=== PATIENT | female | born 1940 | race Caucasian/White ===

== ENCOUNTER 2022-02-22 15:03 | Oncology outpatient (recurring) (ONCR) | payer MEDICARE, SELFPAY | END 2022-03-23 23:59 | disposition home or self-care (01) | PROVIDERS: PCP Internal Medicine; Visit Provider Internal Medicine Medical Oncology | DX: Z08 Encounter for follow-up examination after completed treatment for malignant neoplasm (principal); Z85.3 Personal history of malignant neoplasm of breast; Z90.11 Acquired absence of right breast and nipple | CPT/HCPCS: 99203 ==

== ENCOUNTER 2022-03-09 14:02 | Outpatient (CLI) | payer MEDICARE, SELFPAY ==
--- NOTE | 2022-03-09 14:08 | XR_ITS ---
WS: [id number] DEXA (DUAL ENERGY X-RAY ABSORPTIOMETRY) Bone mineral density was performed using a [employer] machine. HISTORY: Checking bone density COMPARISON: None available. Lumbar spine BMD (L1-L4): 1.911 g/cm2 T score: 6.1 Z score: 7.8 Total hip BMD: Left: 1.025 g/cm2. T score: 0.1 Z score: 2.3 Right: 1.041 g/cm2. T score: 0.3 Z score: 2.4 10 year probability of a major osteoporotic fracture is 11.4%. Lumbar scoliosis and asymmetric disc space narrowing. XR/XR DEXA axial skeleton* [id number] IMPRESSION: NORMAL BONE MINERAL DENSITY based upon the WHO classification for females.
--- NOTE | 2022-03-09 14:12 | MM_ITS ---
WS: [id number] LEFT 3D TOMOSYNTHESIS DIGITAL MAMMOGRAPHY WITH CAD CLINICAL INFORMATION: H/O breast cancer HISTORY: RIGHT mastectomy COMPARISON: None available TECHNIQUE: 3 views of the left breast were obtained. FINDINGS: Scattered fibroglandular densities of the left breast. Vascular calcification. Incidental punctate an d lucent centered calcifications. No suspicious parenchymal abnormalities. Four-quadrant ultrasound d escribed below. ULTRASOUND BREAST LEFT TECHNIQUE: Whole LEFT breast ultrasound CLINICAL INFORMATION: H/O breast cancer FINDINGS: Ultrasound entire LEFT breast. Hypoechoic ovoid area at the 12:00 position 1 cm from the nipple measu ring 3.9 x 2.4 x 4.9 mm best seen anti-radial. This may represent dense fibrous ridging but nonspecif ic and recommend 6 month follow-up to confirm stability. Additional multicystic lesion at the 6:00 position near the areola measuring 6.9 x 3.1 x 7.6 mm appea rs to represent a cluster of incidental cysts. No other suspicious abnormalities. MM/[place] [id number] IMPRESSION: BI-RADS: 3-Probably Benign FOLLOW UP: 6 Month Follow-up Recommend 6 month follow-up LEFT breast ultrasound with attention to the 12:00 ovoid lesion 1 cm from the nipple and also the cluster of microcysts at the 6:0 0 position near the areola.
--- NOTE | 2022-03-09 15:20 | US_ITS ---
WS: [id number] LEFT 3D TOMOSYNTHESIS DIGITAL MAMMOGRAPHY WITH CAD CLINICAL INFORMATION: H/O breast cancer HISTORY: RIGHT mastectomy COMPARISON: None available TECHNIQUE: 3 views of the left breast were obtained. FINDINGS: Scattered fibroglandular densities of the left breast. Vascular calcification. Incidental punctate an d lucent centered calcifications. No suspicious parenchymal abnormalities. Four-quadrant ultrasound d escribed below. ULTRASOUND BREAST LEFT TECHNIQUE: Whole LEFT breast ultrasound CLINICAL INFORMATION: H/O breast cancer FINDINGS: Ultrasound entire LEFT breast. Hypoechoic ovoid area at the 12:00 position 1 cm from the nipple measu ring 3.9 x 2.4 x 4.9 mm best seen anti-radial. This may represent dense fibrous ridging but nonspecif ic and recommend 6 month follow-up to confirm stability. Additional multicystic lesion at the 6:00 position near the areola measuring 6.9 x 3.1 x 7.6 mm appea rs to represent a cluster of incidental cysts. No other suspicious abnormalities. US/US breast complete [id number] IMPRESSION: BI-RADS: 3-Probably Benign FOLLOW UP: 6 Month Follow-up Recommend 6 month follow-up LEFT breast ultrasound with attention to the 12:00 ovoid lesion 1 cm from the nipple and also the cluster of microcysts at the 6:0 0 position near the areola.
== END 2022-03-09 14:03 | disposition home or self-care (01) ==
LOC: RAD 14:03
PROVIDERS: PCP Internal Medicine Medical Oncology; Visit Provider Internal Medicine
DX: Z85.3 Personal history of malignant neoplasm of breast (principal); Z78.0 Asymptomatic menopausal state
CPT/HCPCS: 76641; 77061; 77080; G0279

== ENCOUNTER 2022-09-13 08:20 | Outpatient (CLI) | payer MEDICARE, SELFPAY ==
--- NOTE | 2022-09-13 08:37 | US_ITS ---
WS: [id number] ULTRASOUND BREAST LEFT TECHNIQUE: Ultrasound left breast focused area of concern. CLINICAL INFORMATION: ABNORMAL MAMMO COMPARISON: March 09, 2022 FINDINGS: Ultrasound 12:00 and 600 LEFT breast. Cluster of microcysts at the 6:00 position is unchanged in appe arance. This has a benign appearance. Previously described dense fibrous lesion at 12:00 position not visualized today. This likely represe nted incidental fibrous ridging. Recommend return to annual diagnostic mammography US/US breast LT limited* [id number] IMPRESSION: BI-RADS 2 benign Return to annual diagnostic mammography
== END 2022-09-13 08:21 | disposition home or self-care (01) ==
PROVIDERS: PCP Family Medicine; Visit Provider Internal Medicine Medical Oncology
DX: R92.8 Other abnormal and inconclusive findings on diagnostic imaging of breast (principal); Z85.3 Personal history of malignant neoplasm of breast
CPT/HCPCS: 76642

== ENCOUNTER → 2023-11-09 10:45 | Outpatient (BNVA) | payer MEDICARE, SELFPAY | PROVIDERS: PCP Family Medicine; Referring Provider Family Medicine; Visit Provider Student in an Organized Health Care Education/Training Program | DX: M25.842 Other specified joint disorders, left hand (principal) | CPT/HCPCS: 73110 ==

== ENCOUNTER 2024-06-28 14:40 | Emergency (ER) | payer MEDICARE, SELFPAY ==
[2024-06-28] VITALS (11 sets, daily range): BP systolic 137–194; BP diastolic 72–110; PULSE 64–86; RESP 16–19; TEMP 36.3; O2SAT 95–100
--- NOTE | 2024-06-28 14:50 | ECG_ITS ---
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 Measurements Intervals [place] Rate: 75 P: 29 [place]: 171 QRS: 48 QRSD: 98 T: 45 QT: 368 QTc: 413 Interpretive Statements SINUS RHYTHM INCOMPLETE RIGHT BUNDLE BRANCH BLOCK [90+ ms QRS DURATION, TERMINAL R IN V1/V2, 40+ ms S IN I/aVL/V4/V5/V6] No previous ECG available for comparison Electronically Signed On 06-29-2024 18:01:27 MERCHANDISE COLLECTOR by Rian Mccollum M.D. [email or web address]
--- NOTE | 2024-06-28 15:43 | XRR_ITS ---
PROCEDURE INFORMATION: Exam: XR Chest Exam date and time: 06/28/2024 4:03 PM Age: 84 years old Clinical indication: Other: Hypertension TECHNIQUE: Imaging protocol: Radiologic exam of the chest. Views: 1 view. COMPARISON: No relevant prior studies available. FINDINGS: Lungs: Monitoring leads and clothing artifacts overlie the chest. Lungs appear to be grossly clear. No consolidation. Pleural spaces: Costophrenic angles are well demarcated. No pleural effusion. No pneumothorax. Heart/Mediastinum: Unremarkable. No cardiomegaly. Bones/joints: Unremarkable. Other: Surgical clip like artifacts are seen in the right axillary region. XR/XR chest 1V portable [id number] IMPRESSION: No acute portable chest findings.
[2024-06-28 16:19] LABS: Basophils % 0.6 %; Eosinophils # 0.1 10^3/uL (0.0-0.8); Eosinophils % 1.6 %; Hematocrit 43.3 % (36-47); Lymphocytes # 1.4 10^3/uL (0.8-4.8); Mean Corpuscular HGB Conc 32.6 g/dL (30-55); Mean Corpuscular Hemoglobin 30.1 pg (27-33); Mean Corpuscular Volume 92.5 fl (85-98); Monocytes # 0.4 10^3/uL (0.2-0.9); Monocytes % 8.6 %; Neutrophils # 2.92 10^3/uL (1.8-7.7); Nucleated Red Blood Cells % 0 %; Platelet Count 226 10^3/cmm (157-399); Red Blood Count 4.68 10^6/uL (3.85-5.65); Red Cell Distribution Width 14.5 % (12.1-15.1); White Blood Count 4.87 10^3/uL (3.29-11.43)
[2024-06-28 16:32] LABS: Bilirubin Urine Negative (Negative); Blood Urine Negative (Negative); Glucose Urine UA Negative (Normal); Ketones Urine Trace (Negative); Leukocyte Esterase Urine 1+ (Negative); Nitrate Urine Negative (Negative); Protein Urine Negative (Negative); Specific Gravity, Urine 1.011 (1.005-1.030); Urine Appearance Clear (CLEAR); Urine Color Yellow (Yellow); Urobilinogen Urine 0.2 mg/dL (Negative); pH Urine 6.5 (5-7)
[2024-06-28 16:37] LABS: Bacteria Urine None Seen /hpf; Hyaline Casts Urine 0-4 /lpf; RBC Urine 0-2 /hpf (0-2); Squamous Epithelial Cell Urine 0-5 /hpf (0-5); WBC Urine 0-5 /hpf (0-5)
[2024-06-28 16:44] LABS: Troponin(5th) Baseline 17 ng/L (0-10)
[2024-06-28 16:54] LABS: Alanine Aminotransferase 19 U/L (0-33); Albumin Level 4.3 g/dL (3.5-5.2); Alkaline Phosphatase 62 U/L (35-105); Anion Gap 15.3 (5-19); Aspartate Amino Transferase 25 U/L (0-32); Blood Urea Nitrogen 17 mg/dL (8-23); Calcium 9.4 mg/dL (8.5-10.5); Carbon Dioxide 25 mmol/L (22-29); Chloride 104 mmol/L (98-107); Creatinine Clr Calc Pharmacy 45.2647; Globulin 2.2 g/dL (1.3-4.6); Glucose 91 mg/dL (65-115); NT Pro B Type Natriuretic Pept 333 pg/mL (0-450); Osmolality Calculated 291 mOsm/kg (285-295); Potassium 4.3 mmol/L (3.5-5.1); Sodium 140 mmol/L (136-145); Total Bilirubin 0.8 mg/dL (0.15-1.2); Total Protein 6.5 g/dL (6.6-8.7)
[2024-06-28 17:04] LABS: Influenza A NEGATIVE (Negative); Influenza B NEGATIVE (Negative); Respiratory Syncytial Virus Ce NEGATIVE (Negative); SARS-CoV-2 PCR NEGATIVE (Negative)
--- NOTE | 2024-06-28 17:15 | W.ED.ARRPALP ---
HPI - Arrhythmia/Palpitations General: Chief Complaint: Arrhythmia/Palpitations Stated Complaint: high BP Time Seen by Provider: 06/28/24 16:09 History of Present Illness: 84-year-old female with no known history of hypertension or any other major medical problems who presents emergency room with hypertension. She had gone to her clinic a few days ago and they had given her a single dose of clonidine oh [place] Cristina for couple hours and sent her home. Her blood pressure was back up today so they told her to come to the emergency room. She says she is starting to get a mild headache. No chest pain. No shortness of breath. No abdominal pain. No nausea or vomiting. No altered mental status. No focal motor deficits. Related Data Home Medications ?Medication ?Instructions ?Recorded ?Confirmed calcium 600 mg (as carbonate)-vit 2 tab PO DAILY 01/06/22 06/28/24 D3 10 mcg (400 unit) chewable tablet (Calcium 600 with Vitamin D3) pyridoxine (vitamin B6) 100 mg 200 mg PO BID 01/06/22 06/28/24 tablet acetaminophen 325 mg tablet 650 mg PO QID PRN Pain 11/09/23 06/28/24 (Tylenol) Previous Rx's ?Medication ?Instructions ?Recorded Prosthetic Bra #3 ea 10/14/22 celecoxib 200 mg capsule (Celebrex) 200 mg PO DAILY #90 caps 10/06/23 clonidine HCl 0.1 mg tablet 0.1 mg PO Q8H PRN hypertensive 06/28/24 emergency #20 tabs lisinopril 10 mg tablet 10 mg PO DAILY #30 tabs 06/28/24 Allergies Allergy/AdvReac Type Severity Reaction Status Date / Time codeine Allergy nauseous Verified 06/28/24 14:50 tetracycline Allergy difficulty Verified 06/28/24 14:50 swallowing Review of Systems Narrative: Constitutional symptoms: Negative except as documented in HPI. Skin symptoms: Negative except as documented in HPI. Eye symptoms: Negative except as documented in HPI. ENMT symptoms: Negative except as documented in HPI. Respiratory symptoms: Negative except as documented in HPI. Cardiovascular symptoms: Negative except as documented in HPI. Gastrointestinal symptoms: Negative except as documented in HPI. Genitourinary symptoms: Negative except as documented in HPI. Musculoskeletal symptoms: Negative except as documented in HPI. Neurologic symptoms: Negative except as documented in HPI. Psychiatric symptoms: Negative except as documented in HPI. Endocrine symptoms: Negative except as documented in HPI. PFSH ED PFSH: Medical History Macular degeneration Osteoarthritis History of breast cancer Surgical History Status post Mohs surgery x 2 H/O mastectomy (2002) Right modified radical mastectomy H/O lateral meniscus repair of right knee Family History Father Stroke Mother Cancer Breast cancer CAD (coronary artery disease) Lung disease Denies family history of Diabetes Clotting disorder Dementia Hyperlipidemia Psychiatric illness Suicide Anesthesia complication Bleeding disorder Hypertension Social History Smoking and tobacco/nicotine status: former use of tobacco/nicotine Quit status (tobacco/nicotine): has quit using Second hand smoke exposure: No Alcohol intake: never Substance/Drug Use: never Adopted: No Caregiver/support person: No Lives independently: Yes Marital status: Number of children: 1 Current occupational status: retired and disabled Current gender identity: Female Physical Exam Narrative: EXAM NARRATIVE: General: Alert, no acute distress. Skin: Warm, dry. Head: Normocephalic, atraumatic. Neck: Supple, trachea midline. Eye: Extraocular movements are intact. Ears, nose, mouth and throat: mucosa moist. Cardiovascular: Regular, Normal peripheral perfusion. Respiratory: Lungs are clear to auscultation, respirations are non-labored, breath sounds are equal, Symmetrical chest wall expansion. Gastrointestinal: Soft, Nontender, Non distended Musculoskeletal: Normal ROM, no deformity. Neurological: Alert and oriented, No focal neurological deficit observed. Psychiatric: Cooperative, appropriate mood & affect. Course Vital Signs: Vital signs: Vital Signs Temperature 97.4 F L 06/28/24 14:45 Pulse Rate 68 06/28/24 19:26 Respiratory Rate 16 06/28/24 19:26 Blood Pressure 137/72 06/28/24 19:26 Pulse Oximetry 96 06/28/24 19:26 Oxygen Delivery Me thod Room Air 06/28/24 14:45 MDM - Arrhythmia/Palpitations Medical Decision Making Medical decision making: Differential diagnosis including but not limited to and based on the above HPI, review of systems and physical exam: Patient presents with hypertension: Essential hypertension. Stroke. acute coronary syndrome. kidney failure. congestive heart failure. anxiety EKG: Time 1453. Rate 75. Normal sinus rhythm, No ST-T changes, no ectopy, normal MO & QRS intervals, This was reviewed and interpreted by myself the ER physician at 1457. Chest x-ray: No acute process. No infiltrate. No pneumothorax. This was reviewed and interpreted by myself the emergency room physician. I also reviewed the radiology report. Orders placed to evaluate differential diagnosis based on the above differential, HPI and physical exam Lab Review: Laboratory results were reviewed and interpreted by myself the emergency room physician. No leukocytosis. No anemia. No renal failure. Serial troponins are negative. I reviewed the patient's medical record. Reexamination: Patient remained stable. No increased work of breathing. No altered mental status. No focal motor deficits. Blood pressure has improved. We had a long conversation about goals of blood pressure therapy in the elderly. She expresses understanding. Assessment and plan: Accelerated hypertension ?Clonidine in the emergency room. She has improved. Will start low-dose lisinopril therapy for now. She can follow with her primary doctor about this issue. And they can change her medicines if they feel warranted. - Discharged home - Discussed plan with patient. Answered any questions. - Evaluation and treatment of this problem were appropriate in the emergency setting. Lab Data 06/28/24 16:12 06/28/24 16:12 Radiology Impressions Chest X-Ray 06/28/24 15:43 IMPRESSION: No acute portable chest findings. Laboratory Results WBC 4.87 10^3/uL (3.29-11.43) 06/28/24 16:12 RBC 4.68 10^6/uL (3.85-5.65) 06/28/24 16:12 Hgb 14.10 g/dL (11.27-16.99) 06/28/24 16:12 Hct 43.3 % (36-47) 06/28/24 16:12 MCV 92.5 fl (85-98) 06/28/24 16:12 MCH 30.1 pg (27-33) 06/28/24 16:12 MCHC 32.6 g/dL (30-55) 06/28/24 16:12 RDW 14.5 % (12.1-15.1) 06/28/24 16:12 Plt Count 226 10^3/cmm (157-399) 06/28/24 16:12 MPV 10.0 fL (7.4-10.4) 06/28/24 16:12 Neut % (Auto) 60.0 % 06/28/24 16:12 Lymph % (Auto) 29.0 % 06/28/24 16:12 [place] % (Auto) 8.6 % 06/28/24 16:12 Eos % (Auto) 1.6 % 06/28/24 16:12 Baso % (Auto) 0.6 % 06/28/24 16:12 Neut # (Auto) 2.92 10^3/uL (1.8-7.7) 06/28/24 16:12 Lymph # (Auto) 1.4 10^3/uL (0.8-4.8) 06/28/24 16:12 [place] # (Auto) 0.4 10^3/uL (0.2-0.9) 06/28/24 16:12 Eos # (Auto) 0.1 10^3/uL (0.0-0.8) 06/28/24 16:12 Baso # (Auto) 0.0 10^3/uL (0.0-0.1) 06/28/24 16:12 Nucleated RBC % (auto) 0 % 06/28/24 16:12 Nucleated RBCs # 0.0 /100WBC 06/28/24 16:12 Sodium 140 mmol/L (136-145) 06/28/24 16:12 Potassium 4.3 mmol/L (3.5-5.1) 06/28/24 16:12 Chloride 104 mmol/L (98-107) 06/28/24 16:12 Carbon Dioxide 25 mmol/L (22-29) 06/28/24 16:12 Anion Gap 15.3 (5-19) 06/28/24 16:12 BUN 17 mg/dL (8-23) 06/28/24 16:12 Creatinine 0.7 mg/dL (0.5-0.9) 06/28/24 16:12 GFR Calculation Not Reportable 06/28/24 16:12 Glucose 91 mg/dL (65-115) 06/28/24 16:12 Calculated Osmolality 291 mOsm/kg (285-295) 06/28/24 16:12 Calcium 9.4 mg/dL (8.5-10.5) 06/28/24 16:12 Total Bilirubin 0.8 mg/dL (0.15-1.2) 06/28/24 16:12 AST 25 U/L (0-32) 06/28/24 16:12 ALT 19 U/L (0-33) 06/28/24 16:12 Alkaline Phosphatase 62 U/L (35-105) 06/28/24 16:12 Troponin T Baseline 17 ng/L (0-10) H 06/28/24 16:12 Troponin T 120 Minute 15.68 ng/L (0-10) H 06/28/24 17:38 Delta Troponin T -1.32 ABS# (0-10) L 06/28/24 17:38 NT-Pro-B Natriuret Pep 333 pg/mL (0-450) 06/28/24 16:12 Total Protein 6.5 g/dL (6.6-8.7) L 06/28/24 16:12 Albumin 4.3 g/dL (3.5-5.2) 06/28/24 16:12 Globulin 2.2 g/dL (1.3-4.6) 06/28/24 16:12 Urine Color Yellow (Yellow) 06/28/24 16:11 Urine Appearance Clear (CLEAR) 06/28/24 16:11 Urine pH 6.5 (5-7) 06/28/24 16:11 Ur Specific [place] 1.011 (1.005-1.030) 06/28/24 16:11 Urine Protein Negative (Negative) 06/28/24 16:11 Urine Glucose (UA) Negative (Normal) 06/28/24 16:11 Urine Ketones Trace (Negative) 06/28/24 16:11 Urine Blood Negative (Negative) 06/28/24 16:11 Urine Nitrate Negative (Negative) 06/28/24 16:11 Urine Bilirubin Negative (Negative) 06/28/24 16:11 Urine Urobilinogen 0.2 mg/dL (Negative) 06/28/24 16:11 Ur Leukocyte Esterase 1+ (Negative) A 06/28/24 16:11 Urine RBC 0-2 /hpf (0-2) 06/28/24 16:11 Urine WBC 0-5 /hpf (0-5) 06/28/24 16:11 Ur Squamous Epith Cells 0-5 /hpf (0-5) 06/28/24 16:11 Amorphous Sediment Not Reportable 06/28/24 16:11 Urine Bacteria None seen /hpf (NONE) 06/28/24 16:11 Hyaline Casts 0-4 /lpf H 06/28/24 16:11 Influenza A (PCR) Negative (Negative) 06/28/24 16:12 Influenza Type B (PCR) Negative (Negative) 06/28/24 16:12 RSV (PCR) Negative (Negative) 06/28/24 16:12 SARS-CoV-2 (PCR) Negative (Negative) 06/28/24 16:12 All radiology interpretation(s) finalized by discharge Discharge Plan Discharge Patient Disposition: Home Clinical Impression: Accelerated hypertension Condition: Stable Prescriptions: New clonidine HCl 0.1 mg tablet 0.1 mg PO Q8H PRN (Reason: hypertensive emergency) Qty: 20 0RF Rx Instructions: For Systolic >185 diastolic >100 lisinopril 10 mg tablet 10 mg PO DAILY Qty: 30 0RF No Action acetaminophen [Tylenol] 325 mg tablet 650 mg PO QID PRN (Reason: Pain) Calcium 600 with Vitamin D3 600 mg-10 mcg (400 unit) tablet,chewable 2 tab PO DAILY pyridoxine (vitamin B6) 100 mg tablet 200 mg PO BID (DME) Prosthetic Bra See Rx Instructions .Route .MEDSUPPLY Qty: 3 0RF Rx Instructions: For use with breast prosthesis celecoxib [Celebrex] 200 mg capsule 200 mg PO DAILY Qty: 90 3RF Discharge Orders: Discharge ED (Routine); Ordered 06/28/24 Ordered By: Cheryl Harrell Referrals: Easton Thomas MD [Primary Care Provider] - Discharge Diet: Usual diet Discharge Activity: Resume usual activity Patient Instructions: Hypertension (ED), Opioid Safety, Pain Management Activity Restrictions/Additional Instructions: If you are having to take your clonidine more than once every couple of days you need to seek medical attention immediately. Either contact your PCP or return to the emergency room Thank you for choosing [facility] for your healthcare needs today. Please realize this is an emergency room and that we are providing you with a medical screening exam and this may not be complete and all inclusive of all the testing and or work up that you may need to determine your ailment or severity of your illness. You have been screened and evaluated and felt safe for discharge. Health conditions do change or evolve sometimes and as such it is important that you follow up with your Primary Doctor to be re checked, 3-5 days is a general good time frame for follow up. You are always welcome to return to the ED for re assessment if your symptoms are worsening or you have new concerns Print Language: Maltese Coding Level of Care Code ED V Belt Mold Assembler And Curer for Bianca Chapman
[2024-06-28] MEDS: cloNIDine 0.1 mg Tablet PO (17:21)
[2024-06-28] MEDS: lisinopril 20 mg Tablet PO (17:21)
--- NOTE | 2024-06-28 17:44 | ECG_ITS ---
[employer] [facility] Test Date: 2024-06-28 Pat Name: Carina Chun Department: Room: Gender: Female Concrete Sculptor: : 1940 Requested By: Cheryl Aquino Order Number: [id number] Valentin MD: Rian Mccollum M.D. Measurements Intervals [place] Rate: 65 P: 52 [place]: 180 QRS: 15 QRSD: 98 T: 16 QT: 394 QTc: 412 Interpretive Statements SINUS RHYTHM POSSIBLE RIGHT VENTRICULAR CONDUCTION DELAY [RSR (QR) IN V1/V2] Compared to ECG 06/28/2024 14:53:42 Incomplete right bundle-branch block no longer present Electronically Signed On 06-29-2024 19:29:57 OUTSIDE MACHINIST HELPER by Rian Mccollum M.D. [id number]
[2024-06-28 18:02] LABS: Troponin 5 2HR 15.68 ng/L (0-10)
[2024-06-28 18:05] LABS: Troponin 5 2HR Delta -1.32 ABS# (0-10)
== END 2024-06-28 19:27 | disposition home or self-care (01) ==
PROVIDERS: Emergency Provider Emergency Medicine; PCP Family Medicine
DX: I10 Essential (primary) hypertension (principal); Z11.52 Encounter for screening for COVID-19; Z87.891 Personal history of nicotine dependence; Z85.3 Personal history of malignant neoplasm of breast
CPT/HCPCS: 36415; 71045; 80053; 81001; 83880; 84484; 85025; 87637; 93005; 99285